=== PATIENT | female | born 1975 | race Hispanic/Latino ===

== ENCOUNTER → 2017-11-06 | Outpatient (CLI) | payer MEDICAID | END | disposition home or self-care (01) | LOC: RAH 14:22 | PROVIDERS: ATTEND Nurse Practitioner Adult Health | DX: R51 Headache (principal) | CPT/HCPCS: 70150 ==

== ENCOUNTER 2017-11-10 16:45 | Emergency (ER) | payer MEDICAID | END 2017-11-10 17:28 | disposition home or self-care (01) | LOC: EDH 16:45 | DX: S01.511D Laceration without foreign body of lip, subsequent encounter (principal); X58.XXXD Exposure to other specified factors, subsequent encounter | CPT/HCPCS: 99281 ==

== ENCOUNTER → 2022-06-07 | Outpatient (CLI) | payer OTHER, MEDICARE | END | disposition home or self-care (01) | LOC: WHH 09:22 | PROVIDERS: ATTEND Family Medicine | DX: L89.324 Pressure ulcer of left buttock, stage 4 (principal); L89.314 Pressure ulcer of right buttock, stage 4; L89.214 Pressure ulcer of right hip, stage 4; Q05.9 Spina bifida, unspecified; E66.9 Obesity, unspecified; Z68.29 Body mass index [BMI] 29.0-29.9, adult; Z79.899 Other long term (current) drug therapy | CPT/HCPCS: 97605; A4450 ==

== ENCOUNTER → 2022-06-20 | Outpatient (CLI) | payer OTHER, MEDICARE | END | disposition home or self-care (01) | LOC: WHH 09:27 | PROVIDERS: ATTEND Family Medicine | DX: L89.324 Pressure ulcer of left buttock, stage 4 (principal); L89.214 Pressure ulcer of right hip, stage 4; L89.314 Pressure ulcer of right buttock, stage 4; Q05.9 Spina bifida, unspecified; E66.9 Obesity, unspecified; Z68.29 Body mass index [BMI] 29.0-29.9, adult; Z79.899 Other long term (current) drug therapy | CPT/HCPCS: 97605 ==

== ENCOUNTER → 2022-07-11 | Outpatient (CLI) | payer OTHER, MEDICARE ==
[~2022-07-11] MED LIST: LIDOCAINE HCL 4% LTA SOL 4 ML VIAL ONE
== END | disposition home or self-care (01) ==
LOC: WHH 10:14
PROVIDERS: ATTEND Family Medicine
DX: L89.324 Pressure ulcer of left buttock, stage 4 (principal); L89.214 Pressure ulcer of right hip, stage 4; L89.314 Pressure ulcer of right buttock, stage 4; Q05.9 Spina bifida, unspecified; E66.9 Obesity, unspecified; Z68.29 Body mass index [BMI] 29.0-29.9, adult; Z79.899 Other long term (current) drug therapy
CPT/HCPCS: 87070; 87077; 87186; G0463; A6248; A6196; A6197

== ENCOUNTER → 2022-08-01 | Outpatient (CLI) | payer OTHER, MEDICARE | END | disposition home or self-care (01) | LOC: WHH 10:12 | PROVIDERS: ATTEND Family Medicine | DX: L89.324 Pressure ulcer of left buttock, stage 4 (principal); L89.214 Pressure ulcer of right hip, stage 4; L89.314 Pressure ulcer of right buttock, stage 4; Q05.9 Spina bifida, unspecified; E66.9 Obesity, unspecified; Z68.29 Body mass index [BMI] 29.0-29.9, adult; Z79.899 Other long term (current) drug therapy | CPT/HCPCS: G0463 ==

== ENCOUNTER → 2022-08-22 | Outpatient (CLI) | payer OTHER, MEDICARE | END | disposition home or self-care (01) | LOC: WHH 10:28 | PROVIDERS: ATTEND Family Medicine | DX: L89.214 Pressure ulcer of right hip, stage 4 (principal); L89.324 Pressure ulcer of left buttock, stage 4; L89.314 Pressure ulcer of right buttock, stage 4; Q05.9 Spina bifida, unspecified; E66.9 Obesity, unspecified; Z68.29 Body mass index [BMI] 29.0-29.9, adult; Z79.899 Other long term (current) drug therapy | CPT/HCPCS: 87070; 87077; 87186; G0463; A6248 ==

== ENCOUNTER → 2022-08-29 | Outpatient (CLI) | payer OTHER, MEDICARE | END | disposition home or self-care (01) | LOC: WHH 11:13 | PROVIDERS: ATTEND Family Medicine | DX: L89.214 Pressure ulcer of right hip, stage 4 (principal); L89.224 Pressure ulcer of left hip, stage 4; Q05.4 Unspecified spina bifida with hydrocephalus; E66.9 Obesity, unspecified; Z68.29 Body mass index [BMI] 29.0-29.9, adult; Z79.899 Other long term (current) drug therapy; Z98.890 Other specified postprocedural states | CPT/HCPCS: 97605; A6248 ==

== ENCOUNTER → 2022-09-12 | Outpatient (CLI) | payer OTHER, MEDICARE | END | disposition home or self-care (01) | LOC: WHH 11:20 | PROVIDERS: ATTEND Family Medicine | DX: L89.214 Pressure ulcer of right hip, stage 4 (principal); L89.224 Pressure ulcer of left hip, stage 4; Q05.4 Unspecified spina bifida with hydrocephalus; E66.9 Obesity, unspecified; Z68.29 Body mass index [BMI] 29.0-29.9, adult; Z79.899 Other long term (current) drug therapy; Z98.890 Other specified postprocedural states | CPT/HCPCS: 87070; 87077 ×3; 87186 ×3; G0463; A6197 ×2; A6022; A4450 ==

== ENCOUNTER → 2022-09-19 | Outpatient (CLI) | payer OTHER, MEDICARE | END | disposition home or self-care (01) | LOC: WHH 11:08 | PROVIDERS: ATTEND Nurse Practitioner Family | DX: L89.214 Pressure ulcer of right hip, stage 4 (principal); L89.224 Pressure ulcer of left hip, stage 4; L97.324 Non-pressure chronic ulcer of left ankle with necrosis of bone; Q05.4 Unspecified spina bifida with hydrocephalus; E66.9 Obesity, unspecified; Z68.29 Body mass index [BMI] 29.0-29.9, adult; Z79.899 Other long term (current) drug therapy; Z98.890 Other specified postprocedural states | CPT/HCPCS: G0463 ==

== ENCOUNTER → 2022-09-26 | Outpatient (CLI) | payer OTHER, MEDICARE | END | disposition home or self-care (01) | LOC: WHH 11:00 | PROVIDERS: ATTEND Nurse Practitioner Family | DX: L89.214 Pressure ulcer of right hip, stage 4 (principal); L89.224 Pressure ulcer of left hip, stage 4; L97.324 Non-pressure chronic ulcer of left ankle with necrosis of bone; Q05.4 Unspecified spina bifida with hydrocephalus; E66.9 Obesity, unspecified; Z68.29 Body mass index [BMI] 29.0-29.9, adult; Z79.899 Other long term (current) drug therapy; Z98.890 Other specified postprocedural states | CPT/HCPCS: G0463; A6197 ×2 ==

== ENCOUNTER → 2022-10-10 | Outpatient (CLI) | payer OTHER, MEDICARE ==
[~2022-10-10] MED LIST changes: -LIDOCAINE HCL 4% LTA SOL 4 ML VIAL ONE; +SILVER NITRATE APPLICATOR 1 SWAB TP ONE
== END | disposition home or self-care (01) ==
LOC: WHH 10:58
PROVIDERS: ATTEND Nurse Practitioner Family
DX: L89.214 Pressure ulcer of right hip, stage 4 (principal); L89.224 Pressure ulcer of left hip, stage 4; L97.324 Non-pressure chronic ulcer of left ankle with necrosis of bone; Q05.4 Unspecified spina bifida with hydrocephalus; E66.9 Obesity, unspecified; Z68.29 Body mass index [BMI] 29.0-29.9, adult; Z79.899 Other long term (current) drug therapy; Z98.890 Other specified postprocedural states
CPT/HCPCS: 17250; A6197; A4450

== ENCOUNTER → 2022-10-24 | Outpatient (CLI) | payer OTHER, MEDICARE | END | disposition home or self-care (01) | LOC: WHH 11:11 | PROVIDERS: ATTEND Nurse Practitioner Family | DX: L89.214 Pressure ulcer of right hip, stage 4 (principal); L89.224 Pressure ulcer of left hip, stage 4; L89.324 Pressure ulcer of left buttock, stage 4; Q05.4 Unspecified spina bifida with hydrocephalus; E66.9 Obesity, unspecified; Z68.29 Body mass index [BMI] 29.0-29.9, adult; Z79.899 Other long term (current) drug therapy; Z98.890 Other specified postprocedural states | CPT/HCPCS: G0463; A6197 ×2 ==

== ENCOUNTER → 2022-11-07 | Outpatient (CLI) | payer OTHER, MEDICARE | END | disposition home or self-care (01) | LOC: WHH 11:13 | PROVIDERS: ATTEND Nurse Practitioner Family | DX: L89.214 Pressure ulcer of right hip, stage 4 (principal); L89.224 Pressure ulcer of left hip, stage 4; L89.324 Pressure ulcer of left buttock, stage 4; Q05.4 Unspecified spina bifida with hydrocephalus; E66.9 Obesity, unspecified; Z68.29 Body mass index [BMI] 29.0-29.9, adult; Z79.899 Other long term (current) drug therapy; Z98.890 Other specified postprocedural states | CPT/HCPCS: G0463; A6197 ×2; A4450 ==

== ENCOUNTER → 2022-11-21 | Outpatient (CLI) | payer OTHER, MEDICARE | END | disposition home or self-care (01) | LOC: WHH 11:18 | PROVIDERS: ATTEND Nurse Practitioner Family | DX: L89.224 Pressure ulcer of left hip, stage 4 (principal); Q05.4 Unspecified spina bifida with hydrocephalus; E66.9 Obesity, unspecified; Z68.29 Body mass index [BMI] 29.0-29.9, adult; Z79.899 Other long term (current) drug therapy; Z98.890 Other specified postprocedural states | CPT/HCPCS: G0463; A6197 ×2 ==

== ENCOUNTER → 2022-12-05 | Outpatient (CLI) | payer OTHER, MEDICARE | END | disposition home or self-care (01) | LOC: WHH 11:25 | PROVIDERS: ATTEND Nurse Practitioner Family | DX: L89.224 Pressure ulcer of left hip, stage 4 (principal); L89.211 Pressure ulcer of right hip, stage 1; L98.491 Non-pressure chronic ulcer of skin of other sites limited to breakdown of skin; Q05.4 Unspecified spina bifida with hydrocephalus; E66.9 Obesity, unspecified; Z68.29 Body mass index [BMI] 29.0-29.9, adult; Z79.899 Other long term (current) drug therapy | CPT/HCPCS: G0463; A6197 ×2; A4450 ==

== ENCOUNTER → 2022-12-21 | Outpatient (CLI) | payer MEDICARE, OTHER ==
[~2022-12-21] MED LIST changes: +GADOTERATE MEGLUMINE 10 MMOL/20 ML VIAL IV ONE; -SILVER NITRATE APPLICATOR 1 SWAB TP ONE
== END | disposition home or self-care (01) ==
LOC: RAH 13:14
PROVIDERS: ATTEND Nurse Practitioner Family
DX: L89.224 Pressure ulcer of left hip, stage 4 (principal); R93.89 Abnormal findings on diagnostic imaging of other specified body structures
CPT/HCPCS: 73723; A9575

== ENCOUNTER → 2023-01-03 | Outpatient (CLI) | payer OTHER | END | disposition home or self-care (01) | LOC: WHH 11:10 | PROVIDERS: ATTEND Nurse Practitioner Family | DX: L89.224 Pressure ulcer of left hip, stage 4 (principal); I87.2 Venous insufficiency (chronic) (peripheral); Q05.9 Spina bifida, unspecified; E66.9 Obesity, unspecified; Z68.29 Body mass index [BMI] 29.0-29.9, adult; Z79.899 Other long term (current) drug therapy | CPT/HCPCS: G0463; A6213; A6197 ×2 ==

== ENCOUNTER → 2023-01-30 | Outpatient (CLI) | payer OTHER | END | disposition home or self-care (01) | LOC: WHH 10:13 | PROVIDERS: ATTEND Nurse Practitioner Family | DX: L89.324 Pressure ulcer of left buttock, stage 4 (principal); L89.224 Pressure ulcer of left hip, stage 4; I87.2 Venous insufficiency (chronic) (peripheral); Q05.9 Spina bifida, unspecified; E66.9 Obesity, unspecified; Z68.29 Body mass index [BMI] 29.0-29.9, adult; Z79.899 Other long term (current) drug therapy | CPT/HCPCS: 97605 ==

== ENCOUNTER → 2023-02-13 | Outpatient (CLI) | payer OTHER | END | disposition home or self-care (01) | LOC: WHH 10:22 | PROVIDERS: ATTEND Nurse Practitioner Family | DX: L89.324 Pressure ulcer of left buttock, stage 4 (principal); L89.224 Pressure ulcer of left hip, stage 4; I87.2 Venous insufficiency (chronic) (peripheral); Q05.9 Spina bifida, unspecified; E66.9 Obesity, unspecified; Z68.29 Body mass index [BMI] 29.0-29.9, adult; Z79.899 Other long term (current) drug therapy | CPT/HCPCS: 87070; 87077 ×2; 87186 ×2; G0463; A6197 ×2; A4450 ==

== ENCOUNTER → 2023-03-13 | Outpatient (CLI) | payer OTHER | END | disposition home or self-care (01) | LOC: WHH 11:17 | PROVIDERS: ATTEND Nurse Practitioner Family | DX: L89.324 Pressure ulcer of left buttock, stage 4 (principal); L89.224 Pressure ulcer of left hip, stage 4; I87.2 Venous insufficiency (chronic) (peripheral); Q05.9 Spina bifida, unspecified; E66.9 Obesity, unspecified; Z68.29 Body mass index [BMI] 29.0-29.9, adult; Z79.899 Other long term (current) drug therapy | CPT/HCPCS: G0463; A6209; A6197 ×2; A4450 ==

== ENCOUNTER → 2023-03-27 | Outpatient (CLI) | payer OTHER ==
[~2023-03-27] MED LIST changes: -GADOTERATE MEGLUMINE 10 MMOL/20 ML VIAL IV ONE; +LIDOCAINE HCL 4% LTA SOL 4 ML VIAL ONE; +SILVER NITRATE APPLICATOR 1 SWAB TP ONE
== END | disposition home or self-care (01) ==
LOC: WHH 11:14
PROVIDERS: ATTEND Nurse Practitioner Family
DX: L89.324 Pressure ulcer of left buttock, stage 4 (principal); L89.224 Pressure ulcer of left hip, stage 4; I87.2 Venous insufficiency (chronic) (peripheral); Q05.9 Spina bifida, unspecified; E66.9 Obesity, unspecified; Z68.29 Body mass index [BMI] 29.0-29.9, adult; Z79.899 Other long term (current) drug therapy
CPT/HCPCS: 11042; A6197

== ENCOUNTER → 2023-04-10 | Outpatient (CLI) | payer OTHER | END | disposition home or self-care (01) | LOC: WHH 11:09 | PROVIDERS: ATTEND Nurse Practitioner Family | DX: L89.224 Pressure ulcer of left hip, stage 4 (principal); L89.324 Pressure ulcer of left buttock, stage 4; I87.2 Venous insufficiency (chronic) (peripheral); Q05.9 Spina bifida, unspecified; E66.9 Obesity, unspecified; Z68.29 Body mass index [BMI] 29.0-29.9, adult; Z79.899 Other long term (current) drug therapy | CPT/HCPCS: G0463; A6197; A4450 ==

== ENCOUNTER → 2023-04-24 | Outpatient (CLI) | payer OTHER | END | disposition home or self-care (01) | LOC: WHH 11:20 | PROVIDERS: ATTEND Nurse Practitioner Family | DX: L89.224 Pressure ulcer of left hip, stage 4 (principal); L89.324 Pressure ulcer of left buttock, stage 4; I87.2 Venous insufficiency (chronic) (peripheral); Q05.9 Spina bifida, unspecified; E66.9 Obesity, unspecified; Z68.29 Body mass index [BMI] 29.0-29.9, adult; Z79.899 Other long term (current) drug therapy | CPT/HCPCS: G0463; A6209 ==

== ENCOUNTER → 2023-05-08 | Outpatient (CLI) | payer OTHER | END | disposition home or self-care (01) | LOC: WHH 11:00 | PROVIDERS: ATTEND Nurse Practitioner Family | DX: L89.224 Pressure ulcer of left hip, stage 4 (principal); L89.324 Pressure ulcer of left buttock, stage 4; I87.2 Venous insufficiency (chronic) (peripheral); Q05.9 Spina bifida, unspecified; E66.9 Obesity, unspecified; Z68.29 Body mass index [BMI] 29.0-29.9, adult; Z79.899 Other long term (current) drug therapy | CPT/HCPCS: G0463; A6253; A4450; A6260 ==

== ENCOUNTER → 2023-05-22 | Outpatient (CLI) | payer OTHER, MEDICARE | END | disposition home or self-care (01) | LOC: WHH 11:07 | PROVIDERS: ATTEND Nurse Practitioner Family | DX: L89.224 Pressure ulcer of left hip, stage 4 (principal); I87.2 Venous insufficiency (chronic) (peripheral); Q05.9 Spina bifida, unspecified; E66.9 Obesity, unspecified; Z68.29 Body mass index [BMI] 29.0-29.9, adult; Z79.899 Other long term (current) drug therapy | CPT/HCPCS: 17250; A6253 ==

== ENCOUNTER → 2023-06-08 | Outpatient (CLI) | payer OTHER, MEDICARE | END | disposition home or self-care (01) | LOC: WHH 10:54 | PROVIDERS: ATTEND Nurse Practitioner Family | DX: L89.224 Pressure ulcer of left hip, stage 4 (principal); I87.2 Venous insufficiency (chronic) (peripheral); Q05.9 Spina bifida, unspecified; E66.9 Obesity, unspecified; Z68.29 Body mass index [BMI] 29.0-29.9, adult; Z79.899 Other long term (current) drug therapy | CPT/HCPCS: G0463; A6253; A4450 ==

== ENCOUNTER → 2023-06-22 | Outpatient (CLI) | payer OTHER, MEDICARE | END | disposition home or self-care (01) | LOC: WHH 11:03 | PROVIDERS: ATTEND Nurse Practitioner Family | DX: L89.224 Pressure ulcer of left hip, stage 4 (principal); I87.2 Venous insufficiency (chronic) (peripheral); Q05.9 Spina bifida, unspecified; E66.9 Obesity, unspecified; Z68.29 Body mass index [BMI] 29.0-29.9, adult; Z79.899 Other long term (current) drug therapy | CPT/HCPCS: G0463; A6252 ==

== ENCOUNTER → 2023-07-06 | Outpatient (CLI) | payer OTHER, MEDICARE | END | disposition home or self-care (01) | LOC: WHH 10:49 | PROVIDERS: ATTEND Nurse Practitioner Family | DX: L89.224 Pressure ulcer of left hip, stage 4 (principal); I87.2 Venous insufficiency (chronic) (peripheral); Q05.9 Spina bifida, unspecified; E66.9 Obesity, unspecified; Z68.29 Body mass index [BMI] 29.0-29.9, adult; Z79.899 Other long term (current) drug therapy | CPT/HCPCS: G0463; A6253; A4450 ==

== ENCOUNTER → 2023-07-20 | Outpatient (CLI) | payer OTHER, MEDICARE | END | disposition home or self-care (01) | LOC: WHH 10:57 | PROVIDERS: ATTEND Nurse Practitioner Family | DX: L89.224 Pressure ulcer of left hip, stage 4 (principal); I87.2 Venous insufficiency (chronic) (peripheral); Q05.9 Spina bifida, unspecified; E66.9 Obesity, unspecified; G83.89 Other specified paralytic syndromes; Z68.29 Body mass index [BMI] 29.0-29.9, adult; Z79.899 Other long term (current) drug therapy | CPT/HCPCS: 87070; 87077 ×2; 87186 ×2; G0463; A6253; A6197 ==